=== PATIENT | female | born 1935 | race Caucasian/White ===

== ENCOUNTER 2022-07-19 09:40 | Outpatient (CLI) | payer MEDICARE, SELFPAY ==
--- NOTE | ~2022-07-19 | MR_ITS ---
EXAMINATION: MR MRCP wo/w con/w 3D wo ind DATE: 07/19/2022 11:02 INDICATION: Cystic lesion of the pancreas TECHNIQUE: Magnetic resonance imaging (MRI) of the abdomen was performed without and with intravenous contrast. Sequences included coronal T2-weighted SS-FSE ARC, coronal T2-weighted FS SS-FSE, coronal T2-weighted 2D FS FIESTA, Water:Coronal LAVA-Flex, sagittal T2-weighted SS-FSE ARC, axial SSFSE ARC, axial 3D DualEcho, axial DWI B=600, axial T1-weighted LAVA, FAT:Coronal LAVA-Flex, and coronal in and opposed phase LAVA-Flex. Thick-slab T2-weighted FRFSE-XL images were obtained for magnetic resonance cholangiopancreatography (MRCP). Maximum intensity projection 3-D reconstructions of the volumetric data were created by the technologist. Postcontrast sequences included a time course of axial T1-weig hted LAVA, FAT:Coronal LAVA-Flex, coronal in and opposed phase LAVA-Flex, and Water:Coronal LAVA-Flex . COMPARISON: None. CONTRAST: Multihance, 13 cc FINDINGS: ABDOMEN MRI: There is a 6.3 x 4.1 cm heterogeneous mass in liver segment VII which demonstrates cysti c areas as well as areas of internal hemorrhage. There is an approximately 2.9 x 2.3 cm cystic lesion with thin internal septations and no abnormal enhancement in liver segment IVb. The spleen and adren al glands are normal. The kidneys are unremarkable. There are no pathologically enlarged abdominal ly mph nodes. Sludge is noted in the nondistended gallbladder. There are cystic lesions measuring 4 mm a nd 5 mm in the body of the pancreas which appear to communicate with the main pancreatic duct. There appears to be a 9 mm cystic lesion in the tail of the pancreas and communication with the main pancre atic duct. No internal enhancement is present in the cystic pancreatic lesions after contrast adminis tration. 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 ABDOMEN MRCP: There is low insertion of the cystic duct, common bile duct. There is no intrahepatic o r extrahepatic biliary dilatation. The pancreatic duct is normal in caliber. IMPRESSION: 1. Cystic pancreatic lesions as described above measuring up to 9 mm. The differential diagnosis incl udes pseudocyst, intraductal papillary mucinous neoplasm (IPMN), mucinous cystic neoplasm (MCN), and the less common serous cystadenoma and neuroendocrine tumor. Correlate for history of pancreatitis. F ollow-up pancreas protocol CT or MRI in two years is recommended. 2. 6.3 cm heterogeneous mass of the liver with internal cystic and hemorrhagic spaces of unclear etio logy. Correlation with any prior imaging is recommended. Reviewed, dictated and finalized at location F. IMPRESSION: 1. Cystic pancreatic lesions as described above measuring up to 9 mm. The diffe rential diagnosis includes pseudocyst, intraductal papillary mucinous neoplasm (IPMN), mucinous cystic neoplasm (MCN), and the less common serous cystadenoma and neuroendocrine tumor. Correlate for history of pancreatitis. Follow-up panc reas protocol CT or MRI in two years is recommended. 2. 6.3 cm heterogeneous mass of the liver with internal cystic and hemorrhagic spaces of unclear etiology. Correlation with any prior imaging is recommended.
== END 2022-07-19 09:41 | disposition home or self-care (01) ==
PROVIDERS: PCP Family Medicine; Visit Provider Internal Medicine
DX: D49.0 Neoplasm of unspecified behavior of digestive system (principal)
CPT/HCPCS: 74183; 76376; A9577